=== PATIENT | female | born 1955 | race Caucasian/White ===

== ENCOUNTER 2020-10-10 16:23 | Emergency (ER) | payer BC ==
--- NOTE | 2020-10-10 16:40 | EDM.PDOC ---
ED HPI GENERAL MEDICAL PROBLEM - General Chief Complaint: Abdominal Pain Stated Complaint: ALLERGIC REACTION/VOMITING Time Seen by Provider: 10/10/20 16:33 Source of Information: Reports: Patient, RN Notes Reviewed History Limitations: Reports: No Limitations - History of Present Illness INITIAL COMMENTS - FREE TEXT/NARRATIVE: Patient is a 65-year-old female who presents to the ED for the evaluation of her epigastric discomfort. Patient notes that she had a tooth pulled this morning, and she felt fine prior to the procedure, and directly afterwards. Patient notes she does have a pretty extensive history of allergic reactions, that come on similar to this. However she states she is not changed anything in her normal routine. States that she went home, had some cream of wheat cereal at around 1 PM, and then felt a sudden tightness in her abdomen. She laid down at that time, and she has taken a fair amount of Pepcid tablets, she states she was taking 2 or 3 tablets every 20 minutes or so. She began to feel somewhat faint, and vomited once when she got to the ER, and states this made her feel little bit better. Patient notes that she has been seen in this ER for-like symptoms, given something for this "reaction" and then she feels better and is able to go home. Patient notes that she does have a bad shoulder, and the pain does seem to radiate to her left shoulder a little bit. Primary care provider is Dr. Rodriguez. Patient's had no fever or cough, she did have some shortness of breath when the pain started, she had the one episode of nausea and vomiting and has not had any diarrhea. Upper Abdomen Pain Score (Numeric/FACES): 8 - Related Data Allergies Allergy/AdvReac Type Severity Reaction Status Date / Time amoxicillin [From Augmentin] Allergy Severe Other Verified 10/10/20 16:36 clarithromycin Allergy Severe Other Verified 10/10/20 16:36 clavulanic acid Allergy Severe Other Verified 10/10/20 16:36 [From Augmentin] fexofenadine [From Kaycee-D] Allergy Severe Other Verified 10/10/20 16:36 menthol Allergy Severe Other Verified 10/10/20 16:36 pseudoephedrine Allergy Severe Other Verified 10/10/20 16:36 [From Kaycee-D] shellfish derived Allergy Severe Other Verified 10/10/20 16:36 sulfamethoxazole Allergy Severe Other Verified 10/10/20 16:36 [From ] trimethoprim [From ] Allergy Severe Other Verified 10/10/20 16:36 codeine AdvReac Severe Swelling Verified 10/10/20 16:36 hydrocodone AdvReac Severe Swelling Verified 10/10/20 16:36 morphine AdvReac Severe Swelling Verified 10/10/20 16:36 oxycodone AdvReac Severe Swelling Verified 10/10/20 16:36 Home Meds: Home Meds hydroCHLOROthiazide [Hydrochlorothiazide] 25 mg PO DAILY 11/16/14 [History] Potassium 2 tab PO DAILY 12/25/14 [History] Cholecalciferol (Vitamin D3) [Vitamin D3] 5,000 unit PO DAILY 10/10/20 [History] Docusate Sodium [Colace] 100 mg PO DAILY 10/10/20 [History] Escitalopram Oxalate 10 mg PO DAILY 10/10/20 [History] Multivitamin 1 each PO DAILY 10/10/20 [History] Psyllium Husk [Metamucil] 0.4 gm PO DAILY 10/10/20 [History] Turmeric 400 mg PO DAILY 10/10/20 [History] amLODIPine [Norvasc] 5 mg PO DAILY 10/10/20 [History] Past Medical History Cardiovascular History: Reports: Hypertension Genitourinary History: Reports: Renal Calculus Other Oncologic History: Left Breast Ca - Past Surgical History Female Surgical History: Reports: Hysterectomy, Mastectomy, Other (See Below) Social & Family History - Tobacco Use Tobacco Use Status *Q: Never Tobacco User - Caffeine Use Caffeine Use: Reports: Coffee - Recreational Drug Use Recreational Drug Use: No ED ROS GENERAL - Review of Systems Review Of Systems: Comprehensive ROS is negative, except as noted in HPI. ED EXAM, GI/ABD - Physical Exam Exam: See Below Exam Limited By: No Limitations General Appearance: Alert, WD/WN, No Apparent Distress Respiratory/Chest: No Respiratory Distress, Lungs Clear, Normal Breath Sounds, No Accessory Muscle Use, Chest Non-Tender Cardiovascular: Normal Peripheral Pulses, Regular Rate, Rhythm, No Edema GI/Abdominal Exam: Normal Bowel Sounds, Soft, Non-Tender, No Distention, No Mass, Tender (over epigastrium) Extremities: Normal Inspection, Normal Capillary Refill Neurological: Alert, Oriented, Normal Cognition, No Motor/Sensory Deficits Psychiatric: Normal Affect, Normal Mood Skin Exam: Warm, Dry, Intact, Normal Color, No Rash Course - Vital Signs Last Recorded V/S: Last Vital Signs Temp 96.2 F L 10/10/20 16:32 Pulse 68 10/10/20 16:32 Resp 16 10/10/20 16:32 BP 124/59 L 10/10/20 16:32 Pulse Ox 99 10/10/20 16:32 - Orders/Labs/Meds Orders: Active Orders 24 hr Category Date Time Status Peripheral IV Care [RC] . DIRECTED Care 10/10/20 16:56 Active Sodium Chloride 0.9% [Saline Flush] Med 10/10/20 16:56 Active 10 ml FLUSH ASDIRECTED PRN Peripheral IV Insertion Adult [OM.PC] Stat Oth 10/10/20 16:56 Ordered Medication Orders Sodium Chloride (Sodium Chloride 0.9% 10 Ml Syringe) 10 ml FLUSH ASDIRECTED PRN PRN Reason: Keep Vein Open Last Admin: 10/10/20 17:14 Dose: 10 ml Documented by: REVA Labs: Laboratory Tests 10/10/20 10/10/20 Range/Units 16:33 17:19 WBC 11.26 H (3.98-10.04) K/mm3 RBC 4.71 (3.98-5.22) M/mm3 Hgb 14.8 (11.2-15.7) gm/dl Hct 45.2 H (34.1-44.9) % MCV 96.0 H D (79.4-94.8) fl MCH 31.4 (25.6-32.2) pg MCHC 32.7 (32.2-35.5) g/dl RDW Std Deviation 46.3 (36.4-46.3) fL Plt Count 450 H D (182-369) K/mm3 MPV 9.8 (9.4-12.3) fl Neut % (Auto) 63.2 (34.0-71.1) % Lymph % (Auto) 27.7 (19.3-51.7) % [place] % (Auto) 7.8 (4.7-12.5) % Eos % (Auto) 0.7 (0.7-5.8) Baso % (Auto) 0.4 (0.1-1.2) % Neut # (Auto) 7.11 H (1.56-6.13) K/mm3 Lymph # (Auto) 3.12 (1.18-3.74) K/mm3 [place] # (Auto) 0.88 H (0.24-0.36) K/mm3 Eos # (Auto) 0.08 (0.04-0.36) K/mm3 Baso # (Auto) 0.05 (0.01-0.08) K/mm3 Manual Slide Review Abnormal smear Sodium 139 (136-145) mEq/L Potassium 3.2 L (3.5-5.1) mEq/L Chloride 100 (98-107) mEq/L Carbon Dioxide 26 (21-32) mEq/L Anion Gap 16.2 H (5-15) BUN 21 H (7-18) mg/dL Creatinine 0.6 (0.55-1.02) mg/dL Est Cr Clr Drug Dosing 68.93 mL/min Estimated GFR (MDRD) > 60 (>60) mL/min BUN/Creatinine Ratio 35.0 H (14-18) Glucose 80 (80-115) mg/dL Calcium 9.1 (8.5-10.1) mg/dL Total Bilirubin 0.4 (0.2-1.0) mg/dL AST 41 H (15-37) U/L ALT 65 H (14-59) U/L Alkaline Phosphatase 61 (46-116) U/L Total Protein 7.5 (6.4-8.2) g/dl Albumin 3.8 (3.4-5.0) g/dl Globulin 3.7 gm/dL Albumin/Globulin Ratio 1.0 (1-2) Meds: Medications Generic Name Dose Route Start Last Admin Trade Name Freq PRN Reason Stop Dose Admin Sodium Chloride 10 ml 10/10/20 16:56 10/10/20 17:14 Sodium Chloride 0.9% 10 Ml Syringe FLUSH 10 ml ASDIRECTED PRN Administration Keep Vein Open Discontinued Medications Generic Name Dose Route Start Last Admin Trade Name Freq PRN Reason Stop Dose Admin Al Hydroxide/Mg Hydroxide 30 0 ml 10/10/20 16:57 10/10/20 17:11 ml/ Lidocaine HCl 15 ml PO 10/10/20 16:58 45 ml ONETIME ONE Administration Diphenhydramine HCl 50 mg 10/10/20 16:56 10/10/20 17:12 Diphenhydramine 50 Mg/Ml Sdv IVPUSH 10/10/20 16:57 50 mg ONETIME ONE Administration Sodium Chloride 1,000 mls @ 500 mls/hr 10/10/20 16:56 10/10/20 17:12 Normal Saline IV 10/10/20 18:55 500 mls/hr ONETIME ONE Administration Ketorolac Tromethamine 30 mg 10/10/20 18:17 10/10/20 18:27 Ketorolac 30 Mg/Ml Sdv IVPUSH 10/10/20 18:18 30 mg ONETIME ONE Administration Methylprednisolone Sodium Succinate 125 mg 10/10/20 16:56 10/10/20 17:14 Methylprednisolone Sodium Succinate 125 Mg/2 Ml Sdv IVPUSH 10/10/20 16:57 125 mg ONETIME ONE Administration - Re-Assessments/Exams Free Text/Narrative Re-Assessment/Exam: 10/10/20 17:26 Patient presents to the ER for the evaluation of her epigastric discomfort. Have ordered some labs, and some medications to hopefully make her feel a bit better, will reassess after meds have been given some time to work. 10/10/20 19:12 Patient labs have resulted, and demonstrate no focal abnormalities, CBC was impressive for a mildly elevated white count however I do believe this is due to a acute stress reaction. Patient is feeling much better after the medications given, we will go ahead and discharge her home at this time. Departure - Departure Time of Disposition: 19:17 Disposition: Home, Self-Care 01 Condition: Good Clinical Impression: Allergic reaction Qualifiers: Encounter type: initial encounter Qualified Code(s): T78.40XA - Allergy, unspecified, initial encounter - Discharge Information *PRESCRIPTION DRUG MONITORING PROGRAM REVIEWED*: No *COPY OF PRESCRIPTION DRUG MONITORING REPORT IN PATIENT [place]: No Instructions: Abdominal Pain, Adult, [id number] Referrals: PCP,Not In Area [Ordering Only Provider] - Forms: ED Department Discharge Additional Instructions: You were evaluated in the ER today for your upper abdominal pain. Laboratory evaluation done at today's visit demonstrates no focal abnormalities. Although etiology of this apparent allergic reaction is not readily identified, it is thought likely due to either the local anesthetic given by dentistry in the morning, or possibly the cream of wheat cereal that you had for lunch. Please continue all other medications as previously prescribed by your regular provider. Do not hesitate to return to the ER at any time if symptoms change or worsen. Sepsis Event Note (ED) - Evaluation Sepsis Screening Result: No Definite Risk - Focused Exam Vital Signs: Vital Signs Temp Pulse Resp BP Pulse Ox 10/10/20 16:32 96.2 F L 68 16 124/59 L 99 - My Orders Last 24 Hours: My Active Orders 10/10/20 16:56 Peripheral IV Care [RC] . DIRECTED Sodium Chloride 0.9% [Saline Flush] 10 ml FLUSH ASDIRECTED PRN Peripheral IV Insertion Adult [OM.PC] Stat - Assessment/Plan Last 24 Hours: My Active Orders 10/10/20 16:56 Peripheral IV Care [RC] . DIRECTED Sodium Chloride 0.9% [Saline Flush] 10 ml FLUSH ASDIRECTED PRN Peripheral IV Insertion Adult [OM.PC] Stat
[2020-10-10] MEDS ORDERED: methylPREDNISolone Sodium Succinate 125 MG/2 ML SDV IVPUSH ONE (16:56)
[2020-10-10] MEDS ORDERED: Sodium Chloride 0.9% 1,000 ML IV ONE (16:56)
[2020-10-10] MEDS ORDERED: diphenhydrAMINE 50 MG/ML SDV IVPUSH ONE (16:56)
[2020-10-10] MEDS ORDERED: Sodium Chloride 0.9% 10 ML Syringe FLUSH PRN (16:56)
[2020-10-10] MEDS ORDERED: Alum Hydrox/Mag Hydrox/Simeth 30 ML, Lidocaine 2% 15 ML PO ONE ×2 (16:57)
[2020-10-10] MEDS ORDERED: Ketorolac 30 MG/ML SDV IVPUSH ONE ×2 (18:17→19:16)
[2020-10-10 19:38] VITALS: BP 122/86; PULSE 70
== END 2020-10-10 19:36 | disposition home or self-care (01) ==
LOC: JD.ED 16:23
DX: T78.40XA Allergy, unspecified, initial encounter (principal); I10 Essential (primary) hypertension; Z88.0 Allergy status to penicillin; Z88.1 Allergy status to other antibiotic agents; Z88.8 Allergy status to other drugs, medicaments and biological substances; Z88.2 Allergy status to sulfonamides; Z88.5 Allergy status to narcotic agent; Z91.013 Allergy to seafood; Z79.899 Other long term (current) drug therapy
CPT/HCPCS: 36415; 80053; 85025; 96374; 96375; 96376; 99284; A9270; J1200; J1885; J2930; J7030; 99283

== ENCOUNTER 2020-11-07 06:31 | Day surgery (SDC) | payer BC ==
[~2020-11-07 06:31] MED LIST: Lactated Ringers 1,000 ML IV SCH; Lidocaine 1%/Sod Bicarbonate in NS 8.4% 1 ML Syringe IDERM PRN; Sodium Chloride 0.9% 10 ML Syringe FLUSH PRN
[2020-11-07] MEDS ORDERED: EPINEPHrine 1 MG/ML SDV ONE (06:39)
[2020-11-07] MEDS ORDERED: Ropivacaine 0.5% 5 MG/ML 30 ML SDV ONE (06:39)
[2020-11-07] MEDS ORDERED: fentaNYL 100 MCG/2 ML SDV ONE ×2 (06:41→08:23)
[2020-11-07] MEDS ORDERED: Midazolam 1 MG/ML 2 ML SDV ONE (06:41)
[2020-11-07] MEDS ORDERED: Lidocaine 1% 2 ML ONE (06:41)
[2020-11-07] MEDS ORDERED: Vancomycin 1 GM SDV ONE (06:45)
--- NOTE | 2020-11-07 06:59 | PCM.PREANE ---
Preanesthetic Assessment - Procedure Proposed Procedure: Left shoulder total reverse arthroplasty - Anesthesia/Transfusion/Family Hx Anesthesia History: Prior Anesthesia Reaction (nausea) Family History of Anesthesia Reaction: No Transfusion History: No Prior Transfusion(s) - Review of Systems General: No Symptoms ("little headache") Pulmonary: No Symptoms Cardiovascular: Dyspnea on Exertion Gastrointestinal: No Symptoms Neurological: No Symptoms Other: Reports: Neck Pain ("at times") - Physical Assessment NPO Status Date: 11/06/20 NPO Status Time: 20:15 Height: 1.5 m Weight: 48.5 kg ASA Class: 2 Mental Status: Alert & Oriented x3 Airway Class: Mallampati = 1 Dentition: Reports: Normal Dentition Thyro-Mental Finger Breadths: 3 Mouth Opening Finger Breadths: 3 ROM/Head Extension: Full Lungs: Clear to Auscultation, Normal Respiratory Effort Cardiovascular: Regular Rate, Regular Rhythm - Lab Values: on chart - Imaging/EKG Impressions: EKG SR Rate 69 - Allergies Allergies/Adverse Reactions: Allergies Allergy/AdvReac Type Severity Reaction Status Date / Time amoxicillin [From Augmentin] Allergy Severe Other Verified 10/10/20 16:36 clarithromycin Allergy Severe Other Verified 10/10/20 16:36 clavulanic acid Allergy Severe Other Verified 11/04/20 12:24 [From Augmentin] fexofenadine [From Kaycee-D] Allergy Severe Other Verified 11/04/20 12:24 menthol Allergy Severe Other Verified 11/04/20 12:24 pseudoephedrine Allergy Severe Other Verified 11/04/20 12:24 [From Kaycee-D] shellfish derived Allergy Severe Other Verified 11/04/20 12:24 sulfamethoxazole Allergy Severe Other Verified 11/04/20 12:24 [From Septra] trimethoprim [From Septra] Allergy Severe Other Verified 11/04/20 12:24 acetaminophen Allergy Cannot Verified 11/04/20 12:25 [From Tylenol-Codeine #3] Remember nickel Allergy Cannot Verified 11/04/20 12:25 Remember codeine AdvReac Severe Swelling Verified 11/04/20 12:24 hydrocodone AdvReac Severe Swelling Verified 11/04/20 12:24 morphine AdvReac Severe Swelling Verified 11/04/20 12:24 oxycodone AdvReac Severe Swelling Verified 11/04/20 12:24 - Blood Blood Available: No Product(s) Available: None - Anesthesia Plan Pre-Op Medication Ordered: None - Acknowledgements Anesthesia Type Planned: General Anesthesia, Regional Block (left interscalene nerve block for post-op pain control) Pt an Appropriate Candidate for the Planned Anesthesia: Yes Alternatives and Risks of Anesthesia Discussed w Pt/Guardian: Yes Pt/Guardian Understands and Agrees with Anesthesia Plan: Yes PreAnesthesia Questionnaire HEENT History: Reports: Impaired Vision, Otitis Media, Other (See Below) Other HEENT History: right eye surgery, has partial Cardiovascular History: Reports: Hypertension Respiratory History: Reports: SOB Gastrointestinal History: Reports: GERD, Other (See Below) Other Gastrointestinal History: dilated bile duct, dilated pancreatic duct, liver cyst Genitourinary History: Reports: Renal Calculus [employer] History: Reports: Other (See Below) Other OB/BYN History: abnormal breast cells, endometriosis Musculoskeletal History: Reports: Osteoarthritis, Other (See Below) Other Musculoskeletal History: right ankle injury, right rotator cuff tear, carpal tunnel release Neurological History: Reports: None Psychiatric History: Reports: Anxiety Endocrine/Metabolic History: Reports: Osteopenia Hematologic History: Reports: Other (See Below) Other Hematologic History: hypokalemia, decreased hgb Immunologic History: Reports: None Oncologic (Cancer) History: Reports: Breast Other Oncologic History: Left Breast Ca Dermatologic History: Reports: Other (See Below) Other Dermatologic History: skin lesion, rosacea, fatigue, actinic keratosis - Past Surgical History HEENT Surgical History: Reports: Eye Surgery Cardiovascular Surgical History: Reports: None Respiratory Surgical History: Reports: None GI Surgical History: Reports: Appendectomy, Cholecystectomy, Colonoscopy Female Surgical History: Reports: Hysterectomy, Mastectomy, Other (See Below) Other Female Surgeries/Procedures: double mastectomy from breast cancer Endocrine Surgical History: Reports: None Neurological Surgical History: Reports: None Musculoskeletal Surgical History: Reports: Carpal Tunnel, Shoulder Replacement, Other (See Below) Other Musculoskeletal Surgeries/Procedures:: Bilateral foot surgeries, right shoulder arthroscopy Oncologic Surgical History: Reports: Mastectomy Other Oncologic Surgeries/Procedures: Bilateral Mastectomy Dermatological Surgical History: Reports: None - SUBSTANCE USE Tobacco Use Status *Q: Former Tobacco User Tobacco Use Within Last Twelve Months: No Second Hand Smoke Exposure: No Days Per Week of Alcohol Use: 0 Number of Drinks Per Day: 0 Total Drinks Per Week: 0 Recreational Drug Use History: No - HOME MEDS Home Medications: Home Meds hydroCHLOROthiazide [Hydrochlorothiazide] 25 mg PO DAILY 11/16/14 [History] Cholecalciferol (Vitamin D3) [Vitamin D3] 5,000 unit PO DAILY 10/10/20 [History] Escitalopram Oxalate 10 mg PO DAILY 10/10/20 [History] amLODIPine [Norvasc] 5 mg PO DAILY 10/10/20 [History] Calcium Carb/Vitamin D3/Vit K1 [Calcium + D Soft Chewable Tab] 1 tab PO DAILY 11/04/20 [History] Cholecalciferol (Vitamin D3) [Vitamin D3] 5,000 unit PO DAILY 11/04/20 [History] LORazepam [Ativan] 0.5 mg PO QID PRN 11/04/20 [History] Phenazopyridine [Pyridium] 200 mg PO TID 11/04/20 [History] Potassium Chloride 40 meq PO 10 11/04/20 [History] Aspirin [Aspirin EC] 81 mg PO BID #30 tablet. 11/07/20 [Rx] Cyclobenzaprine [Flexeril] 5 mg PO BID PRN #20 tab 11/07/20 [Rx] Ibuprofen 600 mg PO TID PRN #30 tablet 11/07/20 [Rx] Ondansetron [Zofran] 4 mg PO Q6H PRN #20 tab 11/07/20 [Rx] traMADol [Ultram] 50 - 100 mg PO Q6H PRN #20 tab 11/07/20 [Rx] - CURRENT (IN HOUSE) MEDS Current Meds: Current Medications Lactated Ringer's (Ringers, Lactated) 1,000 mls @ 125 mls/hr IV ASDIRECTED MARSHA Stop: 11/07/20 23:00 Lidocaine/Sodium Bicarbonate (Lidocaine 1%/Sod Bicarbonate In Ns 8.4% 1 Ml Syringe) 0.25 ml IDERM ONETIME PRN PRN Reason: Prior to IV Start Stop: 11/07/20 18:00 Sodium Chloride (Sodium Chloride 0.9% 10 Ml Syringe) 10 ml FLUSH ASDIRECTED PRN PRN Reason: Keep Vein Open Stop: 11/07/20 18:00 Discontinued Medications Epinephrine HCl (Epinephrine 1 Mg/Ml Sdv) Confirm Administered Dose 1 mg .ROUTE .STK-MED ONE Stop: 11/07/20 06:40 Fentanyl (Fentanyl 100 Mcg/2 Ml Sdv) Confirm Administered Dose 100 mcg .ROUTE .STK-MED ONE Stop: 11/07/20 06:42 Lidocaine HCl (Xylocaine-Mpf 1%) Confirm Administered Dose 2 mls @ as directed .ROUTE .STK-MED ONE Stop: 11/07/20 06:42 Midazolam HCl (Midazolam 1 Mg/Ml 2 Ml Sdv) Confirm Administered Dose 2 mg .ROUTE .STWuhan [employer]-MED ONE Stop: 11/07/20 06:42 Ropivacaine (Ropivacaine 0.5% 5 Mg/Ml 30 Ml Sdv) Confirm Administered Dose 30 ml .ROUTE .STK-MED ONE Stop: 11/07/20 06:40 Tranexamic Acid (Tranexamic Acid 1,000 Mg/10 Ml Amp) Confirm Administered Dose 1,000 mg .ROUTE .STK-MED ONE Stop: 11/07/20 06:46 Vancomycin HCl (Vancomycin 1 Gm Sdv) Confirm Administered Dose 1 gm .ROUTE .STK- MED ONE Stop: 11/07/20 06:46
[2020-11-07] MEDS ORDERED: Dexamethasone 4 MG/ML 5 ML MDV ONE (07:24)
[2020-11-07] MEDS ORDERED: Scopolamine 1.5 MG Transdermal Patch TRDERM PRN (07:29)
[2020-11-07] MEDS ORDERED: Rocuronium 50 MG/5 ML Vial ONE (07:54)
[2020-11-07] MEDS ORDERED: Ondansetron 4 MG/2 ML SDV ONE (07:54)
[2020-11-07] MEDS ORDERED: Propofol 200 MG/20 ML SDV ONE ×5 (07:54→09:18)
[2020-11-07] MEDS ORDERED: Lidocaine 1% 4 ML ONE (07:55)
[2020-11-07] MEDS ORDERED: ceFAZolin 1 GM Vial ONE (08:17)
[2020-11-07] MEDS ORDERED: fentaNYL 250 MCG/5 ML SDV ONE (08:53)
[2020-11-07] MEDS ORDERED: Labetalol 100 MG/20 ML MDV ONE (08:55)
[2020-11-07] MEDS: Vancomycin 1 GM SDV ONE ×2 (09:00→09:23)
--- NOTE | 2020-11-07 10:08 | PCM.POSTAN ---
POST ANESTHESIA ASSESSMENT - MENTAL STATUS Mental Status: Alert, Oriented - VITAL SIGNS Vital Signs: Last Vital Signs Temp 36.9 C 11/07/20 07:00 Pulse 63 11/07/20 07:00 Resp 16 11/07/20 07:00 BP 135/85 11/07/20 07:00 Pulse Ox 96 11/07/20 07:00 - RESPIRATORY Respiratory Status: Respiratory Rate WNL, Airway Patent, O2 Saturation Stable, Supplemental Oxygen - CARDIOVASCULAR CV Status: Pulse Rate WNL, Blood Pressure Stable - GASTROINTESTINAL GI Status: No Symptoms - PAIN Pain Score: 0 - POST OP HYDRATION Hydration Status: Adequate & Stable - OBSERVATIONS Free Text/Narrative:: no anesthesia complications noted
--- NOTE | 2020-11-07 10:12 | PCM.SN.2 ---
- Free Text/Narrative Note: Date: 11/07/2020 Time Out:729 Start: 729 Stop: 740 Surgical Procedure: Left reverse total shoulder Diagnosis Left Shoulder rotator cuff tear Current Procedure: Left interscalene block under US guidance for postoperative pain control requested by Dr. Huang. Patient chart reviewed, risk/benefits discussed with patient, consent obtained. Patient positioned supine, monitors/alarms on, oxygen placed via nasal cannula at 2 LPM. IV sedation administered: Versed 2mg IV, Fentanyl 100mcg IV given in preop prior to block placement. Left shoulder prepped with two chloropreps. Sterile drapes placed with aseptic technique noted. Under US guidance, right subclavian artery visualized along with the left brachial plexus. Plexus followed up to C6 cricoid level, and area localized with 2mls of 1% lidocaine. 22gauge 2 inch stimiplex needle advanced under US with 0.8mV with stimulation of biceps noted. Good stimulation noted with decreased voltage and absent at 0.3mVs. 1ml of Normal Saline injected with loss of stimulation noted to confirm needle not placed intraneurally. Incremental dosing of 5mls with negative aspiration noted prior to each injection of 0.5% ropivacaine with 1:200,000 epinephrine and 8mg of decadron. Total volume=30mls. Please refer to nurses noted for vital signs. Michael Orozco CRNA
[2020-11-07] MEDS ORDERED: Haloperidol Lactate 5 MG/ML SDV IVPUSH STA (10:38)
[2020-11-07] MEDS ORDERED: Labetalol 100 MG/20 ML MDV IVPUSH STA (10:38)
--- NOTE | 2020-11-07 11:00 | CR ---
Left shoulder: Single AP view of the left shoulder was obtained. Study was obtained utilizing C-arm device in the operating room. Comparison: No prior left shoulder study is available. Left shoulder prosthesis is seen. Shoulder prosthesis is of the reverse type. Surgical clips are seen overlying the chest. Fluoroscopy time is given as 1.8 seconds. Impression: 1. Procedural study as noted above. Diagnostic code #2
--- NOTE | 2020-11-07 11:26 | CR ---
Left shoulder: Single AP view of the left shoulder was obtained. Comparison: Prior operative study performed earlier on the same day (9:18 AM). Left shoulder prosthesis is seen of the reverse type. Components are aligned. Underlying bony structures show nothing acute. Impression: 1. Reverse left shoulder prosthesis. 2. No acute osseous abnormality is appreciated on this 1-view left shoulder exam. Diagnostic code #2
[2020-11-07] MEDS ORDERED: Promethazine 12.5 MG in Sodium Chloride 0.9% 50 ML IV ONE (12:30)
[2020-11-07 14:46] VITALS: BP 164/81; PULSE 90
--- NOTE | 2020-11-07 15:59 | PCM48HPAN ---
Post Anesthesia Note - EVALUATION WITHIN 48HRS OF ANESTHETIC Vital Signs in Normal Range: Yes Patient Participated in Evaluation: Yes Respiratory Function Stable: Yes Airway Patent: Yes Cardiovascular Function Stable: Yes Hydration Status Stable: Yes Pain Control Satisfactory: Yes Nausea and Vomiting Control Satisfactory: Yes Mental Status Recovered: Yes Vital Signs: Last Vital Signs Temp 36.4 C 11/07/20 14:18 Pulse 90 11/07/20 14:18 Resp 16 11/07/20 14:18 BP 164/81 H 11/07/20 14:18 Pulse Ox 92 L 11/07/20 14:18 - COMMENTS/OBSERVATIONS Free Text/Narrative:: no anesthesia complications noted
--- NOTE | 2020-11-09 10:06 | PCM.OPNOTE ---
- General Post-Op/Procedure Note Date of Surgery/Procedure: 11/07/20 Operative Procedure(s): left reverse total shoulder arthroplasty Pre Op Diagnosis: left shoulder rotator cuff tear arthroplathy Post-Op Diagnosis: Same Anesthesia Technique: General ET Tube, Regional Block Primary Surgeon: Jacques Huang Anesthesia Provider: Michael Orozco Rotor Casting Machine Setup Operator: Jasmine Maurer Rotor Casting Machine Setup Operator: Evangelina Barker EBL in mLs: 100 Complications: None Condition: Good Free Text/Narrative:: 11 stem 32+6 4mm 28 baseplate
--- NOTE | 2020-11-14 08:35 | OR ---
DATE OF OPERATION: 11/07/2020 SURGEON: Jacques Huang MD OPERATION PERFORMED: Left reverse total shoulder arthroplasty. PREOPERATIVE DIAGNOSIS: Left shoulder rotator cuff tear arthropathy. POSTOPERATIVE DIAGNOSIS: Left shoulder rotator cuff tear arthropathy. ANESTHESIA: General endotracheal intubation with regional interscalene block. ANESTHESIOLOGIST: Michael Orozco CRNA ASSISTANTS: Jasmine Maurer PA-C and Evangelina Barker LPN ESTIMATED BLOOD LOSS: 100 mL. COMPLICATIONS: None. CONDITION: Stable. IMPLANTS: 1. Crozier size 11 press-fit humeral reverse stem. 2. Eric size 32, +6 glenosphere. 3. Crozier size 4 mm poly. 4. Crozier size 28 mm concentric baseplate. DESCRIPTION OF PROCEDURE: The patient was identified in the preoperative holding area. Proper site was marked and identified by the surgeon. The patient was taken back to the operating theater where after adequate anesthesia, the patient's left upper extremity was sterilely prepped and draped in the usual sterile fashion. OR time-out was performed. The patient received 2 g of IV Ancef. The patient was placed in reverse Trendelenburg position. Standard deltopectoral incision was made. The cephalic vein was identified and was retracted laterally with the deltoid. The clavipectoral fascia was incised and the conjoined tendon was retracted medially. Anterior humeral circumflex vessels were ligated. Biceps tendon was identified and biceps tenodesis was done at the level of the pectoralis. Takedown of the biceps was done back to the level of the glenoid. Peel down of the subscapularis tendon was then done. The patient was noted to have significant rotator cuff tearing as well as a large amount of chondromalacia centrally on the humeral head. A humeral head cut was then completed and found to be adequate. Attention was turned to the glenoid. Anterior and posterior glenoid retractors were placed. Circumferential removal of labrum as well as a partial capsulectomy was performed. A guide pin was placed in a center-center position with roughly 8 to 10 degrees of inferior tilt. The 28 mm concentric reamer was then utilized and was found to have a good bony bleeding bed. Guide pin was removed. Central screw hole was measured and a 28 mm baseplate was placed and the central compression screw was placed and found to have adequate purchase. Inferior and superior locking screws were placed in divergent fashion and a 32, +6 glenosphere was impacted into place. Attention was turned to the humerus. Starting with a starter awl, I was able to broach up to a size 11 which was found to be rotationally and vertically stable. A calcar planer was then utilized. A +4 trial liner was placed. The patient's shoulder was reduced. C-arm fluoroscopy showed all implants to be in anatomic position. The patient had full range of motion with no over-tensioning of the deltoid or the conjoined tendon. At this time, trial implants were removed. The size 11 Crozier stem was opened on the back table and the +4 liner was impacted into place. This was then impacted in the humerus. The humerus was again relocated. C-arm fluoroscopy was again utilized showing all implants to be in proper position with no signs of fracture. 1 L pulse lavage irrigation with Ancef was irrigated through the shoulder along with 400 mL Irrisept irrigation. Topical tranexamic acid and vancomycin powder were applied. 2-0 Vicryl was used subcutaneously and Prineo was used for closure of the skin. The patient was placed in a sterile soft dressing and pillow sling and sent to the PACU in stable condition. MMODAL /[id number]
== END 2020-11-07 14:44 | disposition home or self-care (01) ==
LOC: JD.SDS 06:31
PROVIDERS: ATTEND Orthopaedic Surgery
DX: M75.102 Unspecified rotator cuff tear or rupture of left shoulder, not specified as traumatic (principal); M19.012 Primary osteoarthritis, left shoulder; I10 Essential (primary) hypertension; K21.9 Gastro-esophageal reflux disease without esophagitis; M85.80 Other specified disorders of bone density and structure, unspecified site; G89.18 Other acute postprocedural pain; Z79.899 Other long term (current) drug therapy; Z88.8 Allergy status to other drugs, medicaments and biological substances; Z88.5 Allergy status to narcotic agent; Z88.1 Allergy status to other antibiotic agents; Z91.013 Allergy to seafood; Z91.048 Other nonmedicinal substance allergy status; Z90.49 Acquired absence of other specified parts of digestive tract; Z98.890 Other specified postprocedural states; Z87.891 Personal history of nicotine dependence; Z79.82 Long term (current) use of aspirin
CPT/HCPCS: 23472; 73020; 76000; 97161; 97165; A9270; C1713; C1769; C1776; J0171; J0690; J1100; J1630; J2250; J2405; J2550; J2704; J2795; J3010; J3370; J3490; J7120; 01630; 64415; 76942

== ENCOUNTER 2021-02-09 14:00 | Emergency (ER) | payer BC ==
[2021-02-09 14:11] VITALS: BP 151/80; PULSE 80
[2021-02-09] MEDS ORDERED: Clindamycin Phosphate in D5W 900 MG in Premix Bag 1 BAG IV ONE ×2 (14:41)
[2021-02-09] MEDS ORDERED: Ketorolac 30 MG/ML SDV IVPUSH ONE (14:41)
--- NOTE | 2021-02-09 15:06 | EDM.PDOC ---
ED HPI GENERAL MEDICAL PROBLEM - General Chief Complaint: Bite:Animal, Insect Stated Complaint: CAT BITE Time Seen by Provider: 02/09/21 14:02 Source of Information: Reports: Patient History Limitations: Reports: No Limitations - History of Present Illness INITIAL COMMENTS - FREE TEXT/NARRATIVE: 65-year-old female presents the emergency department with a cat bite on the dorsal aspect of her right hand. Patient states she was seen at the walk-in clinic 2 days ago and was given doxycycline and Flagyl to begin taking. She states that yesterday the dorsal aspect of her right hand was red hot and swollen however today the swelling has progressed to the distal portion of her forearm. She states the pain has become more severe. She denies any fever, chills, nausea, vomiting or diarrhea. She states she has been taking her antibiotics as prescribed. Of note the patient is allergic to Augmentin stating that it causes her to vomit. Right Hand Pain Score (Numeric/FACES): 8 - Related Data Allergies Allergy/AdvReac Type Severity Reaction Status Date / Time acetaminophen Allergy Severe Cannot Verified 02/09/21 14:25 [From Tylenol-Codeine #3] Remember amoxicillin [From Augmentin] Allergy Severe Other Verified 02/09/21 14:25 clarithromycin Allergy Severe Other Verified 02/09/21 14:25 clavulanic acid Allergy Severe Other Verified 02/09/21 14:25 [From Augmentin] codeine Allergy Severe Swelling Verified 02/09/21 14:09 fexofenadine [From Kaycee-D] Allergy Severe Other Verified 02/09/21 14:25 hydrocodone Allergy Severe Swelling Verified 02/09/21 14:09 menthol Allergy Severe Other Verified 02/09/21 14:25 morphine Allergy Severe Swelling Verified 02/09/21 14:09 nickel Allergy Severe Cannot Verified 02/09/21 14:25 Remember oxycodone Allergy Severe Swelling Verified 02/09/21 14:09 pseudoephedrine Allergy Severe Other Verified 02/09/21 14:25 [From Kaycee-D] shellfish derived Allergy Severe Other Verified 02/09/21 14:25 sulfamethoxazole Allergy Severe Other Verified 02/09/21 14:25 [From Septra] trimethoprim [From Septra] Allergy Severe Other Verified 02/09/21 14:25 Home Meds: Home Meds hydroCHLOROthiazide [Hydrochlorothiazide] 25 mg PO DAILY 11/16/14 [History] Cholecalciferol (Vitamin D3) [Vitamin D3] 5,000 unit PO DAILY 10/10/20 [History] Escitalopram Oxalate 10 mg PO DAILY 10/10/20 [History] amLODIPine [Norvasc] 5 mg PO DAILY 10/10/20 [History] Calcium Carb/Vitamin D3/Vit K1 [Calcium + D Soft Chewable Tab] 1 tab PO DAILY 11/04/20 [History] Potassium Chloride 40 meq PO 10 11/04/20 [History] Aspirin [Aspirin EC] 81 mg PO BID #30 tablet. 11/07/20 [Rx] Past Medical History HEENT History: Reports: Impaired Vision, Otitis Media, Other (See Below) Other HEENT History: right eye surgery, has partial Cardiovascular History: Reports: Hypertension Respiratory History: Reports: SOB Gastrointestinal History: Reports: GERD, Other (See Below) Other Gastrointestinal History: dilated bile duct, dilated pancreatic duct, liver cyst Genitourinary History: Reports: Renal Calculus APPLICATION INTEGRATION ARCHITECT History: Reports: Other (See Below) Other APPLICATION INTEGRATION ARCHITECT History: abnormal breast cells, endometriosis Musculoskeletal History: Reports: Osteoarthritis, Other (See Below) Other Musculoskeletal History: right ankle injury, right rotator cuff tear, carpal tunnel release Neurological History: Reports: None Psychiatric History: Reports: Anxiety Endocrine/Metabolic History: Reports: Osteopenia Hematologic History: Reports: Anemia, Other (See Below) Other Hematologic History: hypokalemia, decreased hgb Immunologic History: Reports: None Oncologic (Cancer) History: Reports: Breast Other Oncologic History: Left Breast "precancer" Dermatologic History: Reports: Other (See Below) Other Dermatologic History: skin lesion, rosacea, fatigue, actinic keratosis - Past Surgical History HEENT Surgical History: Reports: Eye Surgery GI Surgical History: Reports: Appendectomy, Cholecystectomy, Colonoscopy Female Surgical History: Reports: Hysterectomy, Mastectomy, Other (See Below) Other Female Surgeries/Procedures: double mastectomy from breast cancer Musculoskeletal Surgical History: Reports: Carpal Tunnel, Shoulder Replacement, Other (See Below) Other Musculoskeletal Surgeries/Procedures:: Bilateral foot surgeries, bilateral shoulder surgeries Oncologic Surgical History: Reports: Mastectomy Other Oncologic Surgeries/Procedures: Bilateral Mastectomy Social & Family History - Tobacco Use Tobacco Use Status *Q: Former Tobacco User Used Tobacco, but Quit: Yes Month/Year Tobacco Last Used: 06/1999 - Caffeine Use Caffeine Use: Reports: Coffee - Recreational Drug Use Recreational Drug Use: No ED ROS GENERAL - Review of Systems Review Of Systems: Comprehensive ROS is negative, except as noted in HPI. Constitutional: Reports: No Symptoms HEENT: Reports: No Symptoms Respiratory: Reports: No Symptoms Cardiovascular: Reports: No Symptoms Endocrine: Reports: No Symptoms GI/Abdominal: Reports: No Symptoms Musculoskeletal: Reports: Hand Pain (Right) Skin: Reports: Erythema (Right hand and distal right forearm), Wound (Cat bite to dorsal aspect of right hand. There is a very small puncture noted directly in the middle of the dorsal aspect of the right hand) Neurological: Reports: No Symptoms Psychiatric: Reports: No Symptoms Hematologic/Lymphatic: Reports: No Symptoms Immunologic: Reports: No Symptoms ED EXAM, ANIMAL BITE - Physical Exam Exam: See Below Exam Limited By: No Limitations General Appearance: Alert, WD/WN, Mild Distress (Due to pain in right hand from cat bite) Ears: Normal External Exam, Hearing Grossly Normal Nose: Normal Inspection Throat/Mouth: Normal Inspection, Normal Lips, Normal Voice, No Airway Compromise Head: Atraumatic Neck: Normal Inspection, Supple Respiratory/Chest: No Respiratory Distress, Lungs Clear, Chest Non-Tender, Respiratory Distress Cardiovascular: Normal Peripheral Pulses, Regular Rate, Rhythm. No: No Edema (Dorsal aspect of right hand) Peripheral Pulses: 2+: Radial (L), Radial (R) GI/Abdominal: No Distention (Female) Exam: Deferred Rectal (Female) Exam: Deferred Back Exam: Normal Inspection Extremities: Normal Range of Motion, Normal Capillary Refill. No: Normal Inspection (Right hand and distal aspect of right forearm swollen, red and hot on the dorsal aspect), Non-Tender (Tenderness noted to right hand) Neurological: Alert, Oriented, Normal Cognition Psychiatric: Normal Affect, Normal Mood Skin Exam: Other (Right hand red, hot and swollen on dorsal aspect and redness and heat noted on dorsal aspect of right forearm) Lymphatic: No Adenopathy Course - Vital Signs Text/Narrative:: As stated above patient with a cat bite 2 days ago and started on doxycycline and Flagyl. She states that the swelling, redness and pain has become more severe since starting on the antibiotic. She does have erythema, edema and tenderness noted to the dorsal aspect of her right hand and the redness does extend to approximately 2 cm of her distal forearm on the dorsal aspect. I did discuss with her at length that the antibiotics need at least 48 to 72 hours to begin to take effect however we will give her a dose of IV clindamycin today while in the emergency department as recommended by Dr. Reed. I will also give the patient Toradol 30 mg IV for the pain as she has numerous other medication allergies. Last Recorded V/S: Last Vital Signs Temp 97.9 F 02/09/21 14:09 Pulse 80 02/09/21 14:09 Resp 16 02/09/21 14:09 BP 151/80 H 02/09/21 14:09 Pulse Ox 97 02/09/21 14:09 - Orders/Labs/Meds Meds: Medications Discontinued Medications Generic Name Dose Route Start Last Admin Trade Name Rosalio PRN Reason Stop Dose Admin Clindamycin Phosphate 900 mg/ 50 mls @ 100 mls/hr 02/09/21 14:41 02/09/21 14:59 Premix IV 02/09/21 15:10 100 mls/hr ONETIME ONE Administration Ketorolac Tromethamine 30 mg 02/09/21 14:41 02/09/21 14:59 Ketorolac 30 Mg/Ml Sdv IVPUSH 02/09/21 14:42 30 mg ONETIME ONE Administration - Re-Assessments/Exams Free Text/Narrative Re-Assessment/Exam: 02/09/21 15:56 Patient has completed her IV antibiotics. She will be discharged to home. I have discussed with her the importance of continuing to take her doxycycline and Flagyl. She has also been instructed to alternate Tylenol and ibuprofen for pain control as well as keeping her right hand elevated as much as possible and using ice to the affected area 30 minutes at a time every 3 hours while awake. Departure - Departure Time of Disposition: 15:57 Disposition: Home, Self-Care 01 Condition: Good Clinical Impression: Cat bite of hand Qualifiers: Encounter type: sequela Laterality: right Qualified Code(s): S61.451S - Open bite of right hand, sequela; W55.01XS - Bitten by cat, sequela - Discharge Information Instructions: Animal Bite, Adult, [id number] Referrals: Urmila Rodriguez MD [Primary Care Provider] - Forms: ED Department Discharge Additional Instructions: You were seen in the emergency department today with increased swelling noted to your right hand after cat bite. You received IV antibiotics while in the emerg ency department. Continue to take your doxycycline and Flagyl as prescribed. Keep in mind that these medications do take 48 to 72 hours to begin to take effect on infection. While in the emergency department you also received a dose of IV Toradol, this is a nonsteroidal anti-inflammatory medication. When you get home you can take Tylenol 650 mg and in 4 hours may take ibuprofen 600 mg. You can safely alternate these medications for the next 48 hours to decrease pain and inflammation. Also recommend that you elevate your right hand as much as possible. Ice the right hand 30 minutes at a time every 3 hours while awake. Should your condition worsen or change, do not hesitate returning to the emergency department. Sepsis Event Note (ED) - Evaluation Sepsis Screening Result: No Definite Risk - Focused Exam Vital Signs: Vital Signs Temp Pulse Resp BP Pulse Ox 02/09/21 14:09 97.9 F 80 16 151/80 H 97
== END 2021-02-09 16:08 | disposition home or self-care (01) ==
LOC: JD.ED 14:00
DX: S61.451A Open bite of right hand, initial encounter (principal); I10 Essential (primary) hypertension; Z87.891 Personal history of nicotine dependence; Z88.0 Allergy status to penicillin; Z88.1 Allergy status to other antibiotic agents; Z88.8 Allergy status to other drugs, medicaments and biological substances; Z88.5 Allergy status to narcotic agent; Z91.09 Other allergy status, other than to drugs and biological substances; Z91.013 Allergy to seafood; Z79.82 Long term (current) use of aspirin; Z79.899 Other long term (current) drug therapy; W55.01XA Bitten by cat, initial encounter
CPT/HCPCS: 96365; 96375; 99283; J1885; J3490

== ENCOUNTER 2022-09-19 07:01 | Day surgery (SDC) | payer MEDICARE, BC ==
[~2022-09-19 07:01] MED LIST changes: +Sodium Chloride 0.9% 10 ML Syringe FLUSH SCH
[2022-09-19] MEDS ORDERED: Scopolamine 1.5 MG Transdermal Patch TOP SCH (07:16)
[2022-09-19] MEDS ORDERED: fentaNYL 100 MCG/2 ML SDV ONE (07:32)
[2022-09-19] MEDS ORDERED: Midazolam 1 MG/ML 2 ML SDV ONE (07:32)
[2022-09-19] MEDS ORDERED: Propofol 200 MG/20 ML SDV ONE (07:32)
[2022-09-19] MEDS ORDERED: Ketorolac 30 MG/ML SDV ONE (07:33)
[2022-09-19] MEDS ORDERED: ceFAZolin 2 GM Vial ONE (07:33)
[2022-09-19] MEDS ORDERED: Ondansetron 4 MG/2 ML SDV ONE (07:33)
[2022-09-19] MEDS ORDERED: Dexamethasone 4 MG/ML 5 ML MDV ONE (07:33)
[2022-09-19] MEDS: Bupivacaine 0.25% 10 ML SDV ONE ×4 (07:45→08:34)
[2022-09-19] MEDS: Triamcinolone Acetonide 40 MG/ML 1 ML SDV ONE ×2 (07:46→08:34)
[2022-09-19] MEDS: Lidocaine 1% 10 ML MDV ONE ×2 (07:46→08:30)
[2022-09-19 09:29] VITALS: BP 124/72; PULSE 80
== END 2022-09-19 09:26 | disposition home or self-care (01) ==
LOC: JD.SDS 07:01
PROVIDERS: ATTEND Orthopaedic Surgery
DX: G56.03 Carpal tunnel syndrome, bilateral upper limbs (principal); K21.9 Gastro-esophageal reflux disease without esophagitis; I10 Essential (primary) hypertension; F41.1 Generalized anxiety disorder; R23.2 Flushing; Z88.5 Allergy status to narcotic agent; Z88.1 Allergy status to other antibiotic agents; Z88.8 Allergy status to other drugs, medicaments and biological substances; Z91.013 Allergy to seafood; Z79.899 Other long term (current) drug therapy; Z87.891 Personal history of nicotine dependence
CPT/HCPCS: 20526; 64721; A9270; J0690; J1100; J1885; J2250; J2405; J2704; J3301; J3490; J7120; 01810; J3010

== ENCOUNTER 2023-05-02 07:30 | Day surgery (SDC) | payer MEDICARE, BC ==
[~2023-05-02 07:30] MED LIST changes: +EPINEPHrine 0.3 MG, Cefuroxime 750 MG, Ketorolac 30 MG, Sodium Chloride 0.9% 7.9 ML PRN; -Lactated Ringers 1,000 ML IV SCH; -Lidocaine 1%/Sod Bicarbonate in NS 8.4% 1 ML Syringe IDERM PRN; +Morphine 8 MG, EPINEPHrine 0.3 MG, Cefuroxime 750 MG, Ketorolac 30 MG, Sodium Chloride ... PRN; -Sodium Chloride 0.9% 10 ML Syringe FLUSH SCH; +Tranexamic Acid 1,000 MG/10 ML Vial ONE; +Vancomycin 1 GM SDV ONE
[2023-05-02] MEDS: Lactated Ringers 1,000 ML IV SCH ×2 (07:50→12:26)
[2023-05-02] MEDS ORDERED: fentaNYL 100 MCG/2 ML SDV ONE ×2 (09:40→11:46)
[2023-05-02] MEDS ORDERED: Midazolam 1 MG/ML 2 ML SDV ONE (09:42)
[2023-05-02] MEDS ORDERED: Propofol 200 MG/20 ML SDV ONE (09:42)
[2023-05-02] MEDS ORDERED: ceFAZolin 2 GM Vial ONE (09:43)
[2023-05-02] MEDS ORDERED: ePHEDrine 50 MG/ML SDV ONE (10:37)
[2023-05-02] MEDS ORDERED: fentaNYL 100 MCG/2 ML SDV IVPUSH PRN (11:45)
[2023-05-02] MEDS ORDERED: HYDROmorphone 0.5 MG/0.5 ML Syringe IVPUSH PRN (11:45)
[2023-05-02] MEDS ORDERED: Ondansetron 4 MG/2 ML SDV IVPUSH SCH (12:33)
[2023-05-02] MEDS ORDERED: Ondansetron 4 MG/2 ML SDV ONE (12:34)
[2023-05-02] MEDS: traMADol 50 MG Tab PO SCH ×2 (13:11→19:48)
[2023-05-02] MEDS ORDERED: Magnesium Hydroxide 400 MG/5 ML Susp 30 ML Cup PO ONE (14:31)
[2023-05-02] MEDS ORDERED: diphenhydrAMINE 50 MG/ML SDV IVPUSH ONE (14:31)
[2023-05-02] MEDS ORDERED: Famotidine 20 MG/2 ML SDV IVPUSH ONE (14:31)
[2023-05-02] MEDS ORDERED: HYDROmorphone 2 MG Tab PO STA (14:53)
[2023-05-02] MEDS ORDERED: Cyclobenzaprine 10 MG Tab PO ONE (16:35)
[2023-05-02] MEDS ORDERED: Cyclobenzaprine 10 MG Tab PO PRN (17:00)
[2023-05-02] MEDS ORDERED: Naloxone 0.4 MG/ML SDV IVPUSH PRN (17:00)
[2023-05-02] MEDS ORDERED: HYDROmorphone 2 MG Tab PO PRN ×2 (17:00→17:14)
[2023-05-02] MEDS ORDERED: Ketorolac 30 MG/ML SDV IVPUSH ONE (17:00)
[2023-05-02] MEDS ORDERED: Ketorolac 15 MG/ML SDV IVPUSH PRN (17:00)
[2023-05-02] MEDS: Sodium Chloride 0.9% 10 ML Syringe FLUSH SCH (19:47)
[2023-05-02] MEDS ORDERED: Aluminum Hydroxide/Magnesium Hydroxide/Simethicone Susp 30 ML Cup PO PRN (20:40)
[2023-05-03] MEDS: traMADol 50 MG Tab PO SCH (00:41)
[2023-05-03] MEDS: Sodium Chloride 0.9% 10 ML Syringe FLUSH SCH (00:42)
[2023-05-03] MEDS ORDERED: Ketorolac 30 MG/ML SDV IVPUSH PRN (08:06)
[2023-05-03 08:42] VITALS: BP 124/54
[2023-05-03 09:00] VITALS: PULSE 82
[2023-05-03] MEDS ORDERED: Sertraline 50 MG Tab PO SCH (09:00)
[2023-05-03] MEDS ORDERED: Hydrochlorothiazide 25 MG Tab PO SCH (09:00)
[2023-05-03] MEDS ORDERED: amLODIPine 10 MG Tab PO SCH (09:00)
== END 2023-05-03 13:44 | disposition home or self-care (01) ==
LOC: JD.SDS 07:30 → JD.MS 19:01 → JD.SDS 05-03 13:44
PROVIDERS: ATTEND Orthopaedic Surgery
DX: M16.11 Unilateral primary osteoarthritis, right hip (principal); M19.09 Primary osteoarthritis, other specified site; M25.78 Osteophyte, vertebrae; K21.9 Gastro-esophageal reflux disease without esophagitis; I10 Essential (primary) hypertension; F41.9 Anxiety disorder, unspecified; Z90.49 Acquired absence of other specified parts of digestive tract; Z90.89 Acquired absence of other organs; Z87.891 Personal history of nicotine dependence; Z79.899 Other long term (current) drug therapy; Z88.2 Allergy status to sulfonamides; Z88.5 Allergy status to narcotic agent; Z88.8 Allergy status to other drugs, medicaments and biological substances; Z88.1 Allergy status to other antibiotic agents; Z91.048 Other nonmedicinal substance allergy status; Z91.013 Allergy to seafood
CPT/HCPCS: 01214; 36415; 73501-26-RT; 73501-RT; 86850; 86900; 86901; 97116-GP; 97161-GP; A9270-GY; C1713; C1758; C1776; J0171; J0690; J0697; J1200; J1885; J2250; J2270; J2405; J2704; J3010; J3370; J3490; J7030; J7120

== ENCOUNTER 2024-05-16 16:58 | Emergency (ER) | payer MEDICARE, BC ==
[2024-05-16 18:34] LABS: APPEARANCE,URINE SLT CLOUDY (Clear); BILIRUBIN,URINE NEGATIVE (Negative); COLOR,URINE PINK (Yellow); GLUCOSE,URINE NEGATIVE (Negative); KETONES,URINE NEGATIVE (Negative); LEUKOCYTE ESTERASE,URINE 1+ (Negative); NITRITE,URINE NEGATIVE (Negative); OCCULT BLOOD,URINE 3+ (Negative); PH,URINE 6.5 (5.0-8.0); PROTEIN,URINE 2+ (Negative); UROBILINOGEN,URINE 0.2 (0.2-1.0)
[2024-05-16] MEDS ORDERED: Phenazopyridine 95 MG Tab PO ONE (18:37)
[2024-05-16 18:43] LABS: BACTERIA,URINE FEW /hpf (FEW); MUCUS,URINE NOT SEEN /hpf (FEW); RBC,URINE TOO NUMEROUS TO CNT /hpf (0-5); SQUAMOUS EPITHELIAL CELLS,UR 0-5 /hpf (0-5)
[2024-05-16 18:58] LABS: BASOPHILS ABSOLUTE AUTO 0.1 K/mm3 (0.0-0.2); EOSINOPHILS ABSOLUTE AUTO 0.2 K/mm3 (0.0-0.4); EOSINOPHILS PERCENT AUTO 2.6 % (0.0-6.0); HEMOGLOBIN 14.2 gm/dl (12.0-16.0); IMMATURE GRAN ABSOLUTE AUTO 0.02 K/mm3 (0.00-0.05); IMMATURE GRAN PERCENT AUTO 0.2 % (0.0-0.4); LYMPHOCYTES ABSOLUTE AUTO 2.2 K/mm3 (1.0-4.8); MEAN CORPUSCULAR HEMOGLOBIN 32.1 pg (28.0-32.0); MEAN CORPUSCULAR HGB CONC 35.5 g/dl (32.0-36.0); MEAN CORPUSCULAR VOLUME 90.5 fl (83.0-99.0); MEAN PLATELET VOLUME 9.8 fl (9.4-12.3); MONOCYTES ABSOLUTE AUTO 0.6 K/mm3 (0.0-0.8); MONOCYTES PERCENT AUTO 7.3 % (0.0-8.0); NEUTROPHILS ABSOLUTE AUTO 5.1 K/mm3 (1.8-7.7); NEUTROPHILS PERCENT AUTO 61.9 % (41.0-71.0); PLATELET COUNT,PLT 370 K/mm3 (150-400); RED BLOOD CELL COUNT 4.42 M/mm3 (4.10-5.30); WHITE BLOOD CELL COUNT,WBC 8.31 K/mm3 (3.9-11.3)
[2024-05-16] MEDS: Metoclopramide 10 MG/2 ML SDV IVPUSH ONE (19:15)
[2024-05-16] MEDS: Sodium Chloride 0.9% 10 ML Syringe FLUSH PRN (19:16)
[2024-05-16] MEDS: Phenazopyridine 95 MG Tab PO ONE (19:16)
[2024-05-16] MEDS: diphenhydrAMINE 50 MG/ML SDV IVPUSH ONE (19:16)
[2024-05-16] MEDS: cefTRIAXone 2 GM in Sodium Chloride 0.9% 100 ML IV ONE (19:17)
[2024-05-16 19:29] LABS: ALBUMIN 3.7 g/dl (3.4-5.0); ANION GAP 12.6 (5-15); BILIRUBIN TOTAL 0.4 mg/dL (0.2-1.0); BUN/CREATININE RATIO 32.5 (14-18); C-REACTIVE PROTEIN 0.55 mg/dL (<0.30); CALCIUM 9.2 mg/dL (8.5-10.1); CREATININE 0.8 mg/dL (0.55-1.02); EST CRCL DRUG DOSING (CG) 49.69 mL/min; POTASSIUM,K 2.6 mEq/L (3.5-5.1); PROTEIN TOTAL,TP 7.3 g/dl (6.4-8.2)
[2024-05-16] MEDS ORDERED: Sodium Chloride 0.9% 1,000 ML ONE (19:51)
[2024-05-16] MEDS: Potassium Chloride 20 MEQ Tab.ER PO ONE ×2 (20:36)
[2024-05-16] MEDS: Potassium Chloride 10 MEQ in Premix Bag 1 BAG IV SCH (20:38)
[2024-05-16 20:48] VITALS: BP 120/98; PULSE 80
== END 2024-05-16 20:40 | disposition home or self-care (01) ==
LOC: JD.ED 16:58
DX: N39.0 Urinary tract infection, site not specified (principal); K59.00 Constipation, unspecified; E87.6 Hypokalemia; I10 Essential (primary) hypertension; Z90.49 Acquired absence of other specified parts of digestive tract; Z90.710 Acquired absence of both cervix and uterus; Z88.1 Allergy status to other antibiotic agents; Z88.0 Allergy status to penicillin; Z88.2 Allergy status to sulfonamides; Z88.5 Allergy status to narcotic agent; Z88.8 Allergy status to other drugs, medicaments and biological substances; Z91.013 Allergy to seafood; Z79.01 Long term (current) use of anticoagulants; Z79.899 Other long term (current) drug therapy
CPT/HCPCS: 36415; 71045; 74018; 74176; 80053; 81001; 83880; 85025; 85379; 86140; 87086; 96365; 96375; 99284; A9270; J0696; J1200; J2765; J3490